=== PATIENT | female | born 1955 | race Caucasian/White ===

== ENCOUNTER → 2017-01-03 | Outpatient (CLI) | payer MEDICARE, OTHER ==
--- NOTE | 2017-01-04 07:32 | MM ---
Reason for exam: history of breast cancer, mastectomy. Last mammogram was performed 1 year and 2 months ago. History: Patient is postmenopausal and has history of breast cancer at age 52. Family history of breast cancer in maternal grandmother. Excisional biopsy of the left breast, 2008. Excisional biopsy of the right breast, 2008. Mastectomy of the left breast, 2008. Took antineoplastic for 5 years beginning at age 52. Physical Findings: Nurse did not find any significant physical abnormalities on exam. MG 3D Diag Mammo W/Cad RT CC and MLO view(s) were taken of the right breast. Prior study comparison: November 09, 2015, right breast MG 3d diag mammo w/cad RT. October 13, 2014, right breast MG diagnostic mammo RT w CAD. There are scattered fibroglandular densities. Finding: Architectural distortion in the right breast consistent with previous surgery. No significant changes in finding since November 09, 2015 and October 13, 2014. These results were verbally communicated with the patient and result sheet given to the patient on 01/03/17. ASSESSMENT: Benign, BI-RAD 2 RECOMMENDATION: Follow-up diagnostic mammogram of the right breast in 1 year.
== END | disposition home or self-care (01) ==
LOC: RADMAMWWP 15:10
PROVIDERS: ATTEND Family Medicine
DX: Z08 Encounter for follow-up examination after completed treatment for malignant neoplasm (principal); Z85.3 Personal history of malignant neoplasm of breast
CPT/HCPCS: G0206; G0279

== ENCOUNTER → 2020-03-20 | Outpatient (CLI) | payer MEDICARE, OTHER ==
--- NOTE | 2020-03-23 15:18 | PE ---
Nuclear medicine PET/CT HISTORY: Head and neck cancer, C 76.0, initial, remote history left breast cancer Patient received 9.9 mCi F-18 FDG intravenously in delayed scanning was performed from the skull base to the mid thighs. Localization and attenuation correction CT scan was performed. Small rlcyr-oh-ciw w images obtained through the head and neck No comparisons Chest and neck: bilateral parotid glands show associated soft tissue masses with associated hypermet abolic uptake. Abnormal soft tissue within the submandibular region on the left, anterior the sternoc leidomastoid muscle is somewhat poorly defined and measures approximately 3 cm in AP dimension by 3 c m in transverse dimension and shows associated hypermetabolic uptake. No supraclavicular adenopathy. There is uptake at the base of the tongue which could possibly be physiologic extending to the region of the loculated. Anterior, also show some uptake. There is no mediastinal, axillary, or hilar uptake, no adenopathy. The lungs show too numerous to cou nt pulmonary nodules present. The nodules are subcentimeter in size. Mild uptake present within some of the nodules. There is no pleural or pericardial effusion. ABDOMEN: There is no adrenal mass or retroperitoneal adenopathy. No ascites. No evident liver mass. L ow-attenuation focus at the upper pole the left kidney measures 3.7 cm and likely represents a cyst. Atheromatous changes are present within the aorta. Extensive diverticular change in the sigmoid colon . Uterus and adnexal structures within normal limits. Urinary bladder unremarkable, no pelvic adenopa thy. The stomach shows concentric narrowing, there is uptake present associated with the cardiac and portions of the body the stomach. There is associated hypermetabolic uptake. Bowel uptake in the righ t hemiabdomen felt likely to be physiologic. Osseous structures are within normal limits. IMPRESSION: Findings suggest metastatic disease to the lungs. Uptake within the parotid glands may re present metastatic doron uptake, Warthin's tumors not excluded. Indeterminate uptake within the stoma ch. Consider upper endoscopy.
== END | disposition home or self-care (01) ==
LOC: RADPETMAIN 13:52
PROVIDERS: ATTEND Internal Medicine Hematology & Oncology
DX: D11.9 Benign neoplasm of major salivary gland, unspecified (principal); C76.0 Malignant neoplasm of head, face and neck
CPT/HCPCS: 78815; A9552

== ENCOUNTER → 2020-07-03 | Outpatient (CLI) | payer MEDICARE ==
--- NOTE | 2020-07-03 16:31 | PE ---
Nuclear medicine PET/CT HISTORY: Head and neck cancer, subsequent, C 76.0 Patient received 8.9 mCi F-18 FDG intravenously in delayed scanning was performed from skull base to the mid thighs. Localization and attenuation correction CT scan was performed. Small xtaxm-tj-lyot im ages were also obtained through the head and neck. Correlation prior exam 03/20/2020 Chest and neck: Bilateral parotid masses are present, 2 on the right, single on the left, larger mass in the parotid on the right shows SUV of 10.4, SUV on the left is 8.7. Nonenlarged nodes are present along the cervical chains anteriorly. The large soft tissue mass seen on previous exam in the subman dibular location on the left has decreased in size, no associated hypermetabolic uptake. The lungs show an improved appearance. The nodule seen on prior exam have decreased in size, multiple nodules are less conspicuous as compared to prior exam, no pleural or pericardial effusion. No media stinal, axillary, or hilar adenopathy. ABDOMEN: No suspicious uptake. Osseous structures no suspicious uptake IMPRESSION: There is tumor response to therapy as described. No suspicious uptake with exception of t he parotid lesions.
== END | disposition home or self-care (01) ==
LOC: RADPETMAIN 11:16
PROVIDERS: ATTEND Internal Medicine Hematology & Oncology
DX: C76.0 Malignant neoplasm of head, face and neck (principal)
CPT/HCPCS: 78815; A9552

== ENCOUNTER → 2020-09-25 | Outpatient (CLI) | payer MEDICARE ==
--- NOTE | 2020-09-28 05:49 | PE ---
EXAMINATION TYPE: PET CT fusion skull to thigh DATE OF EXAM: 09/25/2020 COMPARISON: NONE HISTORY: Left-sided neck cancer progress study originally diagnosed in March 2020 completed chemoth erapy August 2020. TECHNIQUE: Following the intravenous administration of 10.58 mCi of F-18 FDG, whole body images are performed from the skull base to the midthigh. Images are reviewed on the computer in the coronal, a xial, and sagittal planes. Reconstructed rotating images are created on independent workstation and reviewed on the computer. A localization and attenuation correction CT is performed in conjunction with the PET scan. Blood glucose level was 106. Dedicated PET/CT imaging of head and neck. SCAN: Subsequent Scan FINDINGS: SKULL BASE AND NECK: Persistent bilateral hypermetabolic parotid masses. Fairly stable posterior 10 x 8 mm hypermetabolic left parotid mass, max SUV is 8.68 on current study axial image 42. There are 2 hypermetabolic right-sided masses redemonstrated largest is posteriorly measuring 1.3 x 1.1 cm image 44, max SUV is 8.79 on current study. No new areas of abnormal hypermetabolic uptake with particular attention to the left submandibular re gion, increased soft tissue density at this level axial image 49 remains present consistent with memo jess neoplasm. CHEST, MEDIASTINUM, AND HILAR REGION: New abnormal right axillary adenopathy with several prominent a nd hypermetabolic lymph nodes, for reference there is a 1.6 x 1.2 cm lymph node with abnormal cortica l eccentric thickening, max SUV is 8.34. For reference there is abnormal 1.8 x 0.9 cm lymph node supe rior to this max SUV is 7.3. ABDOMEN AND PELVIS: Nonspecific gastric uptake is been present on several studies with suggestion of some increased wall thickening, advise direct visualization, max SUV is 7.21. Findings could reflect intraluminal bowel contents but occult neoplasm such as lymphoma should be excluded with direct visua lization. Nonspecific bowel uptake otherwise. Normal excretion. OSSEOUS STRUCTURES: No suspicious hypermetabolic uptake. OTHER CT: Stable right subclavian Mediport catheter. [id number] left carotid bulb calcification . Moderate emphysematous changes in the lungs with scattered micronodules and nodular scarring redemo nstrated. Left breast noted surgically absent. Cortical thinning both kidneys. Stable 2.8 cm thin-walled cyst laterally left kidney. Mild/moderate c alcified plaque of the aorta. Facet arthropathy lower lumbar spine. Degenerative changes both hips. IMPRESSION: Stable suspicious bilateral parotid masses. Correlate clinically. No recurrent hypermetab olic uptake at site of primary neoplasm. There is however new abnormal right axillary hypermetabolic adenopathy. No distinct new hypermetabolic right breast lesion but new right breast neoplasm needs to be considered in patient with history of left breast cancer. Nonspecific gastric uptake, direct visu alization is advised to further evaluate.
== END | disposition home or self-care (01) ==
LOC: RADPETMAIN 13:22
PROVIDERS: ATTEND Internal Medicine Hematology & Oncology
DX: C76.0 Malignant neoplasm of head, face and neck (principal); Z85.3 Personal history of malignant neoplasm of breast
CPT/HCPCS: 78815; A9552

== ENCOUNTER → 2021-01-29 | Outpatient (CLI) | payer MEDICARE ==
--- NOTE | 2021-02-01 06:58 | PE ---
EXAMINATION TYPE: PET CT fusion skull to thigh DATE OF EXAM: 01/29/2021 COMPARISON: Prior PET/CT September 25, 2020 and older studies HISTORY: Left-sided base of tongue cancer progress study originally diagnosed in March 2020 complet ed chemotherapy January 25 2021. TECHNIQUE: Following the intravenous administration of 6.11 mCi of F-18 FDG, whole body images are p erformed from the skull base to the midthigh. Images are reviewed on the computer in the coronal, ax ial, and sagittal planes. Reconstructed rotating images are created on independent workstation and r eviewed on the computer. A localization and attenuation correction CT is performed in conjunction w ith the PET scan. Dedicated PET/CT imaging of the neck. SCAN: Subsequent Scan FINDINGS: SKULL BASE AND NECK: Persistent bilateral hypermetabolic parotid masses. Slightly larger posterior 1 3 x 11 mm hypermetabolic left parotid mass, max SUV is however 4.22 Current study diminished from kain or. There are persistent 2 hypermetabolic right-sided masses redemonstrated largest is posteriorly me asuring 1.3 x 1.1 cm axial image 47. The stable, max SUV is 8 4.26 on current study. No new areas of abnormal hypermetabolic uptake with particular attention to the left submandibular re gion at area of original neoplasm. CHEST, MEDIASTINUM, AND HILAR REGION: Complete resolution of abnormal hypermetabolic right axillary l ymph nodes. No persistent enlarged or abnormal hypermetabolic lymph nodes are present.. ABDOMEN AND PELVIS: Nonspecific diffuse gastric uptake is been present on several studies with sugges tion of some increased wall thickening, advise direct visualization has not been performed. Findings could reflect intraluminal bowel contents but occult neoplasm such as lymphoma should be excluded wit h direct visualization. Nonspecific bowel uptake otherwise improved from prior. Normal excretion. OSSEOUS STRUCTURES: No suspicious hypermetabolic uptake. OTHER CT: Stable right subclavian Mediport catheter. Otlu-[id number]-azwcuwhx left carotid bulb calcification . Moderate emphysematous changes in the lungs with scattered micronodules and nodular scarring redemo nstrated. Left breast noted surgically absent. Cortical thinning both kidneys. Stable small thin-walled cyst laterally left kidney. Mild/moderate ca lcified plaque of the aorta. Facet arthropathy lower lumbar spine. Degenerative changes both hips. IMPRESSION: Persistent bilateral parotid masses. Correlate clinically. No recurrent hypermetabolic up take at site of primary neoplasm. Positive treatment response to right axillary adenopathy. No new ar eas of abnormal hypermetabolic uptake..
== END | disposition home or self-care (01) ==
LOC: RADPETMAIN 12:59
PROVIDERS: ATTEND Internal Medicine Hematology & Oncology
DX: K11.8 Other diseases of salivary glands (principal); Z85.810 Personal history of malignant neoplasm of tongue
CPT/HCPCS: 78815; A9552

== ENCOUNTER → 2022-03-11 | Outpatient (CLI) | payer MEDICARE ==
--- NOTE | 2022-03-13 22:53 | PE ---
EXAMINATION TYPE: PET CT fusion skull to thigh DATE OF EXAM: 03/11/2022 CLINICAL INDICATION:Female, 66 years old with history of C76.0 MALIGNANT NEOPLASM OF HEAD, FACE AND N BRENDA; TECHNIQUE: Following the intravenous administration of 13.6 mCi of F-18 FDG, whole body images are performed from the skull base to the midthigh. Images are reviewed on the computer in the coronal, a xial, and sagittal planes. Reconstructed rotating images are created on independent workstation and reviewed on the computer. A non-contrast CT is performed in conjunction with the PET scan. Glucose level 104 mg/dL COMPARISON: CT None, PET/CT 01/29/2021, 09/25/2020, FINDINGS: Mediastinal SUV mean is 2.0. Hepatic parenchyma SUV mean is 2.7. SKULL BASE AND NECK: No suspicious FDG activity. Bilateral parotid gland foci of FDG activity measur ing Max SUV 4.6 and additional smaller focus inferiorly measuring Max SUV 3.2 measuring 13 x 8 mm and 8 mm respectively on the right. On the left measuring Max SUV 3.4 and 15 x 9 mm. Overall findings not unchanged from prior on 01/29/2021 measuring Max SUV on the right of 4.3, 3.9 and and on the left 4.2 respectively. CHEST, MEDIASTINUM, AND HILAR REGION: No suspicious FDG activity. ABDOMEN AND PELVIS: No suspicious FDG activity. OSSEOUS STRUCTURES: No suspicious FDG activity. OTHER CT: Scattered atherosclerosis of the arterial vasculature. Right chest wall [id number] with tip terminating in the superior vena cava. Left breast surgically absent. Small hiatal hernia. Left r enal cyst. Fat-containing umbilical hernia. Few scattered clonic diverticula. Multilevel disc degener ation changes. IMPRESSION: Persistent bilateral parotid masses. Correlate clinically, findings may relate to Warthin gland tumor s. No new areas of abnormal hypermetabolic uptake.
== END | disposition home or self-care (01) ==
LOC: RADPETMAIN 09:46
PROVIDERS: ATTEND Internal Medicine Hematology & Oncology
DX: C76.0 Malignant neoplasm of head, face and neck (principal)
CPT/HCPCS: 78815; A9552

== ENCOUNTER → 2023-11-02 | Outpatient (CLI) | payer MEDICARE ==
--- NOTE | 2023-11-02 13:59 | CT ---
EXAMINATION TYPE: CT chest wo con DATE OF EXAM: 11/02/2023 COMPARISON: None HISTORY: Intersitital lung disease, hx breast/throat ca CT DLP: 373 mGycm High-resolution noncontrast CT of the chest was performed with the patient in the prone and supine po sitions. Lung and mediastinal window settings are submitted. The lungs appear to be well-aerated. Mild subpleural fibrosis upper lobes. Mild centrilobular emphyse ma. There is no evidence for bronchiectasis, groundglass infiltrate, nodule or mass. No pleural effu miryam is identified. I do not see evidence for hilar or mediastinal mass or adenopathy. IMPRESSION: Mild subpleural fibrosis upper lobes. Mild centrilobular emphysema.
== END | disposition home or self-care (01) ==
LOC: RADCTMAIN 13:17
PROVIDERS: ATTEND Internal Medicine
DX: J84.10 Pulmonary fibrosis, unspecified (principal); J43.2 Centrilobular emphysema; J84.9 Interstitial pulmonary disease, unspecified; Z85.3 Personal history of malignant neoplasm of breast
CPT/HCPCS: 71250